=== PATIENT | male | born 1990 | race African-American/Black ===

== ENCOUNTER 2018-11-12 12:08 | Emergency (ER) | payer OTHER ==
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
== END 2018-11-12 13:46 | disposition home or self-care (01) ==
LOC: MW.ED 12:08
DX: M54.5 Low back pain (principal); M62.830 Muscle spasm of back
CPT/HCPCS: 72100; 72100-26; 99284